=== PATIENT | male | born 1970 | race Two or more races ===

== ENCOUNTER 2016-09-13 18:20 | Emergency (ER) | payer OTHER | END 2016-09-13 19:52 | disposition home or self-care (01) | LOC: CED 18:20 → CFTX 18:20 | DX: M54.12 Radiculopathy, cervical region (principal); I10 Essential (primary) hypertension; Z88.0 Allergy status to penicillin; F17.210 Nicotine dependence, cigarettes, uncomplicated | CPT/HCPCS: 99282 ==